=== PATIENT | male | born 1995 | race Caucasian/White ===

== ENCOUNTER 2021-07-09 21:27 | Emergency (ER) | payer SELFPAY ==
[~2021-07-09] VITALS: Ht 175.3 cm; Wt 68.1 kg
[2021-07-09] MEDS ORDERED: IV NORMAL SALINE 1000ML BAG 1,000 ML IV ONE ×2 (21:45→22:45)
--- NOTE | 2021-07-09 22:11 | PHYS DOC ---
General Adult EDM: Chief Complaint: RAPID HEART RATE HPI: HPI: Patient is a 26 year old male presents for evaluation of palpitations. Patient states prior to arrival he was working out suddenly felt his heart racing. Patient felt very anxious and his heart pounding so therefore he called 911. Upon EMS arrival it was stated that patient had a heart rate greater than 200 bpm. EMS treated patient with adenosine 6 mg with improvement of patient's heart rate. On arrival patient's heart rate in the 120s. He has no complaints at this time. Patient denies any previous history of SVT. EKG performed in the ER shows a sinus tachycardia with a heart rate of 118 bpm. Patient denied any preceding chest pain or shortness of breath. At the time my evaluation patient heart rate in the 120s. He states he has no chest pain or shortness of breath. He states he is very anxious but otherwise feels fine. Patient is requesting medications for anxiety. Review of Systems: Review of Systems: Review of systems: Constitutional symptoms- No fever, no chills. Eyes- No Discharge, No Visual Loss Respiratory symptoms- No shortness of breath, No wheezing, No Dyspnea on Exertion Cardiovascular Systems; No chest pain, positive palpitations, No syncope Gastrointestinal symptoms: NO abdominal pain, no nausea, no vomiting or diarrhea. Genitourinary symptoms: No dysuria. Musculoskeletal symptoms: No back pain No extremity pain. NEUROLOGICAL Symptoms: No headache, no generalized weakness; No focal Weakness Skin: No rash. Heart Score: C/O Chest Pain: N/A Risk Factors: Risk Factors: DM, Current or recent (<one month) smoker, HTN, HLP, family history of CAD, obesity. Risk Scores: Score 0 - 3: 2.5% MACE over next 6 weeks - Discharge Home Score 4 - 6: 20.3% MACE over next 6 weeks - Admit for Clinical Observation Score 7 - 10: 72.7% MACE over next 6 weeks - Early Invasive Strategies Current Medications: Current Medications Medications (Trade) Dose Ordered Sig/Tommy Start Time Stop Time Status Last Admin Dose Admin Lorazepam (Ativan Inj) 1 mg 1X ONCE 07/09/21 21:45 07/09/21 21:46 DC Sodium Chloride 1,000 ml @ 1,000 mls/hr 1X ONCE 07/09/21 21:45 07/09/21 22:44 Allergies: Allergies: Allergies Coded Allergies Type Severity Reaction Last Updated Verified No Known Drug Allergies 07/09/21 No Physical Exam: PE: Constitutional: Well developed, well nourished, no acute distress, non-toxic appearance. [] HENT: Normocephalic, atraumatic, bilateral external ears normal, oropharynx moist, no oral exudates, nose normal. [] Eyes: PERRLA, EOMI, conjunctiva normal, no discharge. [] Neck: Normal range of motion, no tenderness, supple, no stridor. [] Cardiovascular: Tachycardia Lungs & Thorax: Bilateral breath sounds clear to auscultation [] Abdomen: Bowel sounds normal, soft, no tenderness, no masses, no pulsatile masses. [] Skin: Warm, dry, no erythema, no rash. [] Back: No tenderness, no CVA tenderness. [] Extremities: No tenderness, no cyanosis, no clubbing, ROM intact, no edema. [] Neurologic: Alert and oriented X 3, normal motor function, normal sensory function, no focal deficits noted. [] Psychologic: Affect normal, judgement normal, mood normal. [] EKG: EKG: Performed at 2119 Rate [address] elevation No ST depression No acute ME [] Radiology/Procedures: Radiology/Procedures: [] Impression: Wet read chest x-ray no focal infiltrate no bony abnormalities no acute process FINDINGS: The cardiomediastinal silhouette and pulmonary vessels are within normal limits. The lung and pleural spaces are clear. IMPRESSION: No acute cardiopulmonary process. Course & Med Decision Making: Course & Med Decision Making Pertinent Labs and Imaging studies reviewed. (See chart for details) [] Treatment included IV fluids and a milligram of Ativan. Patient's troponin noted to be elevated suspect cause due to SVT. EKG performed after arrival and treatment with adenosine shows a sinus tachycardia. Patient observed heart rate continues to be in the 130s. Patient states he has a severe anxiety to hospitals. Patient did receive IV fluids and Ativan. We will discharge patient home on Xanax referred to his primary care physician for evaluation. Patient educated on SVT advised that could And again. Discussed home treatments which could include Valsalva maneuvers. Dragon Disclaimer: Dragon Disclaimer: This electronic medical record was generated, in whole or in part, using a voice recognition dictation system. Departure Departure Impression: Primary Impression: Anxiety Additional Impression: SVT (supraventricular tachycardia) Disposition: HOME / SELF CARE / HOMELESS Condition: STABLE Patient Instructions: Anxiety and Panic Attacks, Supraventricular Tachycardia Scripts Alprazolam (XANAX) 1 Mg Tablet 1 MG PO PRN Q6HRS PRN for ANXIETY / AGITATION, #20 TAB 0 Refills Prov: RONALD WEBBER DO 07/09/21 RONALD WEBBER DO Jul 09, 2021 22:11
--- NOTE | 2021-07-09 22:22 | RAD ---
Exam: Chest one view INDICATION: Tachycardia TECHNIQUE: Frontal view of the chest Comparisons: None FINDINGS: The cardiomediastinal silhouette and pulmonary vessels are within normal limits. The lung and pleural spaces are clear. IMPRESSION: No acute cardiopulmonary process. Electronically signed by: Valeria Cannon MD (07/09/2021 10:19 PM) CLARA
[2021-07-09 22:55] VITALS: BP 140/78
[2021-07-09 23:01] LABS: HEMATOCRIT 43.2 % (39.0-53.0); HEMOGLOBIN 14.5 g/dL (13.0-17.5); LYMPH % 38 % (24-48); MEAN CORPUSCULAR HEMOGLOBIN 27 pg (25-35); MEAN CORPUSCULAR HGB CONC 34 g/dL (31-37); MEAN CORPUSCULAR VOLUME 79 fL (79-100); MONO % 8 % (0-9); NEUT % 48 % (31-73); PLATELET COUNT 284 x10^3/uL (140-400); RED BLOOD COUNT 5.44 x10^6/uL (4.30-5.70); RED CELL DISTRIBUTION WIDTH 13.5 % (11.5-14.5); WHITE BLOOD COUNT 7.4 x10^3/uL (4.0-11.0)
[2021-07-09 23:02] LABS: ALBUMIN 4.2 g/dL (3.4-5.0); ALBUMIN/GLOBULIN RATIO 1.4 (1.0-1.7); BASO # 0.1 x10^3/uL (0.0-0.2); BASO % 2 % (0-3); CALCIUM 8.8 mg/dL (8.5-10.1); EOS # 0.3 x10^3/uL (0.0-0.7); EOS % 4 % (0-3); LYMPH # 2.8 x10^3/uL (1.0-4.8); MONO # 0.6 x10^3/uL (0.0-1.1); NEUT # 3.6 x10^3/uL (1.8-7.7); TOTAL PROTEIN 7.3 g/dL (6.4-8.2)
[2021-07-09 23:03] LABS: CREATININE 0.9 mg/dL (0.7-1.3); POTASSIUM 4.2 mmol/L (3.5-5.1); TOTAL BILIRUBIN 0.3 mg/dL (0.2-1.0)
[2021-07-09] MEDS ORDERED: ALPR1TAB2 PO (23:46)
--- NOTE | 2021-07-10 01:11 | EKG ---
[facility] [address] [place] [id number] Test Date: 2021-07-09 Test Time: 21:19:09 Pat Name: PJ SOLARES Department: Room: Gender: M [employer] In[employer]: : 1995 Requested By: RONALD WEBBER Order Number: [id number] Reading MD: Joon Lazar MD Measurements Intervals [place] Rate: 118 P: 45 ID: [id number] QRS: 45 QRSD: 90 T: 4 QT: 304 QTc: 428 Interpretive Statements SINUS TACHYCARDIA NON-SPECIFIC ST/T CHANGES Electronically Signed On 07-11-2021 10:00:46 TACTICAL DEBRIEFER OFFICER by Joon Lazar MD
== END 2021-07-10 00:40 | disposition home or self-care (01) ==
LOC: ER 21:27
DX: I47.1 Supraventricular tachycardia (principal); R00.2 Palpitations
CPT/HCPCS: 36415; 71045; 80053; 84484; 85025; 85379; 93005; 96361; 96374; 99285; J2060; J7030